=== PATIENT | female | born 1985 | race Caucasian/White ===

== ENCOUNTER 2018-10-11 16:25 | Emergency (ER) | payer SELFPAY ==
[~2018-10-11] VITALS: Ht 160 cm; Wt 59.9 kg
[2018-10-11 16:55] VITALS: BP 139/77
== END 2018-10-11 19:09 | disposition home or self-care (01) ==
LOC: ER 16:30
DX: S46.811A Strain of other muscles, fascia and tendons at shoulder and upper arm level, right arm, initial encounter (principal); S16.1XXA Strain of muscle, fascia and tendon at neck level, initial encounter; S80.01XA Contusion of right knee, initial encounter; M62.838 Other muscle spasm; W01.0XXA Fall on same level from slipping, tripping and stumbling without subsequent striking against object, initial encounter; Y93.89 Activity, other specified; Y92.89 Other specified places as the place of occurrence of the external cause; Y99.8 Other external cause status
CPT/HCPCS: 72050-TC; 73030-TC; 73560-TC; 84703-TC